=== PATIENT | male | born 1945 | race Two or more races ===

== ENCOUNTER → 2017-09-08 | Outpatient (CLI) | payer OTHER ==
[~2017-09-08] MED LIST: REGADENOSON 0.4 MG/5 ML SYR IV ONE
--- NOTE | 2017-09-15 12:23 | Cardiology Report ---
DATE OF STUDY: September 08, 2017 LEXISCAN NUCLEAR STRESS TEST INDICATIONS: Chest pain. DESCRIPTION OF PROCEDURE: After informed consent, patient was brought to the stress lab. He was given 10.8 mCi of technetium 99 Myoview, and myocardial perfusion SPECT images were obtained in the horizontal long axis, short axis and vertical long axis views. Subsequently, patient was given 0.4 mg Lexiscan over 10 seconds, and patient was given 32 mCi of technetium 99 Myoview intravenously, and myocardial perfusion SPECT images were obtained in the horizontal long axis, short axis and vertical long axis views. Gating images were also obtained. Patient tolerated this procedure without any complications. REPORT: Baseline EKG shows sinus rhythm at 63 beats per minute, normal axis, normal intervals, nonspecific ST-T changes. PARAMETERS: 1. Resting heart rate is 56 beats per minute. 2. Maximum heart rate 87 beats per minute. 3. Resting blood pressure 149/94 mmHg. 4. Maximum blood pressure 161/93 mmHg. REASON FOR TERMINATION: Endpoint attained. INTERPRETATION: 1. Negative for chest pain. 1. Negative for arrhythmias. 2. Blood pressure response consistent with Lexiscan. 3. No significant ST-T changes seen during Lexiscan infusion compared to baseline. 4. Analysis of SPECT images reveals uniform radioisotope uptake in all segments of the myocardium without any significant perfusion defects. CONCLUSION: 1. No evidence of significant ischemia or infarction on this study. 2. No wall motion abnormalities. 3. Overall ejection fraction is 69%. Job#: [id number]
== END ==
LOC: NM 08:20
DX: M79.602 Pain in left arm (principal)
CPT/HCPCS: 78452; 93017; A9502